=== PATIENT | female | born 1960 | race Caucasian/White ===

== ENCOUNTER → 2020-04-13 | Outpatient (CLI) | payer OTHER ==
[~2020-04-13] MED LIST: None at this Time
== END | disposition home or self-care (01) ==
LOC: STAR 14:31
PROVIDERS: ATTEND Thoracic Surgery (Cardiothoracic Vascular Surgery)
DX: Z01.818 Encounter for other preprocedural examination (principal); R94.31 Abnormal electrocardiogram [ECG] [EKG]
CPT/HCPCS: 93005

== ENCOUNTER 2020-04-25 12:06 | Day surgery (SDC) | payer OTHER ==
[~2020-04-25] VITALS: Ht 172.7 cm; Wt 98.8 kg
[2020-04-25] MEDS ORDERED: CHLORHEXIDINE 15 ML UDC MM STA (12:43)
[2020-04-25] MEDS ORDERED: LACTATED RINGERS 1,000 ML IV SCH ×2 (12:43→14:42)
[2020-04-25] MEDS ORDERED: LIDOCAINE-MPF 1%, 2ML INFIL STA (12:43)
[2020-04-25 12:47] VITALS: BP 179/83
[2020-04-25] MEDS ORDERED: BUPIVACAINE/PF-EPI 0.5% 1:200K ONE (13:00)
[2020-04-25] MEDS ORDERED: HALOPERIDOL 5 MG/ML IV PRN (13:30)
[2020-04-25] MEDS ORDERED: OXYcodone 5 MG/5 ML ORAL.SOL UDC PO PRN (13:30)
[2020-04-25] MEDS ORDERED: HYDROmorphone 1 MG/ML, 1ML INJ IVPush PRN (13:30)
[2020-04-25] MEDS ORDERED: hydrALAzine 20 MG/ML, 1ML IV PRN (13:30)
[2020-04-25] MEDS ORDERED: PROMETHAZINE 25 MG/ML, 1ML IVPush PRN (13:30)
[2020-04-25] MEDS ORDERED: LABETALOL 5MG/ML, 20ML IV PRN (13:30)
[2020-04-25] MEDS ORDERED: MEPERIDINE/PF 25MG/0.5ML IVPush PRN (13:30)
[2020-04-25] MEDS ORDERED: DIPHENHYDRAMINE 50 MG/ML, 1ML IVPush PRN (13:30)
[2020-04-25] MEDS ORDERED: MIDAZOLAM 1 MG/ML, 2ML ONE (13:52)
[2020-04-25] MEDS ORDERED: FENTANYL PF 250 MCG/5ML ONE (13:52)
[2020-04-25] MEDS ORDERED: PROPOFOL 10 MG/ML, 20ML ONE (14:28)
[2020-04-25] MEDS ORDERED: CEFAZOLIN 1,000 MG ONE (14:28)
[2020-04-25] MEDS ORDERED: ROCURONIUM 10MG/ML,5ML ONE (14:28)
[2020-04-25] MEDS ORDERED: DEXAMETHASONE 4 MG/ML, 1ML ONE (14:28)
[2020-04-25] MEDS ORDERED: SUCCINYLCHOLINE 20 MG/ML, 10ML ONE (14:28)
[2020-04-25] MEDS ORDERED: NEOSTIGMINE 1 MG/ML, 10ML ONE (14:28)
[2020-04-25] MEDS ORDERED: GLYCOPYRROLATE 0.2MG/1ML, 5ML ONE (14:28)
[2020-04-25] MEDS ORDERED: ONDANSETRON 2MG/ML, 2ML ONE (14:28)
[2020-04-25] MEDS ORDERED: OXYcodone 5 MG/5 ML ORAL.SOL UDC ONE (14:43)
[2020-04-25] MEDS ORDERED: MEPERIDINE/PF 25MG/ML,1ML ONE (14:43)
[2020-04-25] MEDS ORDERED: FENTANYL PF 100 MCG/2ML ONE (14:43)
[2020-04-25] MEDS: FENTANYL PF 100 MCG/2ML IV PRN ×2 (14:44→14:50)
[2020-04-25] MEDS ORDERED: HYDROcodone/APAP 5/325 TABLET PO PRN (15:00)
[2020-04-25] MEDS ORDERED: ONDANSETRON 2MG/ML, 2ML IVPush PRN (15:00)
[2020-04-25] MEDS ORDERED: morphine SULFATE 10 MG/ML, 1ML IVPush PRN (15:00)
== END 2020-04-25 16:00 | disposition home or self-care (01) ==
LOC: OUT 12:06
PROVIDERS: ATTEND Thoracic Surgery (Cardiothoracic Vascular Surgery)
DX: K56.50 Intestinal adhesions [bands], unspecified as to partial versus complete obstruction (principal); Z88.6 Allergy status to analgesic agent; Z90.49 Acquired absence of other specified parts of digestive tract
CPT/HCPCS: 44180; C1729; J0330; J0690; J1100; J2175; J2250; J2405; J2704; J2710; J3010; J7120; U0001